=== PATIENT | female | born 1945 | race Caucasian/White ===

== ENCOUNTER 2016-03-24 09:23 | Observation (INO) | payer OTHER ==
[2016-03-24] VITALS (7 sets, daily range): BP systolic 113–206; BP diastolic 60–85; PULSE 50–114; RESP 16–18; TEMP 98.1–98.7; O2SAT 96–98
[~2016-03-24] VITALS: Ht 157.5 cm; Wt 87.0 kg
[~2016-03-24 09:23] MED LIST: ALBU8I INH; ASPI81TA82 PO; ATOR10TA PO; GLUCTAB PO; LISI-363 PO; MAGN400T PO; METO100T PO; NORV5TAB PO; PLAV75TA PO; PROT40TA PO; VENTAER INH; VITA20003 PO
--- NOTE | 2016-03-24 09:49 | PD ---
HPI Chief Complaint: Cardiac Complaint Time Seen by Provider: 09:38 Travel History International Travel<30 days: No Contact w/Intl Traveler<30days: No Traveled to known affect area: No History of Present Illness HPI 70-year-old female complains of chest pain and jaw pain and neck pain. Patient has history of CAD status post CABG and stent placement. Patient's on aspirin and Plavix daily. Patient started having left-sided jaw pain last night which lasted an hour and resolved completely. Patient started having neck discomfort , left sided jaw pain, and left chest discomfort this morning. Patient states that the symptoms started about an hour and a half prior coming to the emergency room. Patient states that the the pain is mild and constant. Patient denies any coughing congestion fever chills. Patient states that she had jaw pain in the past with previous MO. Patient has history hypertension, diabetes. Patient denies any history of dyslipidemia. Patient is a nonsmoker. Patient has family history of heart disease. On a scale of 1-10 the pain is a 1. Patient states that she has intermittent palpitations since last night also. PFSH Past Medical History Asthma: Yes Autoimmune Disease: Yes (SUNDAR) Heart Rhythm Problems: No Cardiac Catheterization: Yes Cardiovascular Problems: Yes (MO; STENTS; PACER) High Cholesterol: Yes Congestive Heart Failure: No Diabetes: Yes Diminished Hearing: No Endocrine: No Fibromyalgia: Yes GERD: Yes Genitourinary: No Musculoskeletal: Yes Neurologic: No Psychiatric: No Reproductive: No Respiratory: Yes Myocardial Infarction: Yes Thyroid Disease: Yes (?) : 3 Para: 2 Miscarriage: 1 Ectopic : Yes Past Surgical History Abdominal Surgery: Yes Cardiac Surgery: Yes (CAbg 1999) Cholecystectomy: Yes Coronary Artery Bypass Graft: Yes Coronary Stent: Yes Ear Surgery: No Endocrine Surgery: No Eye Surgery: Yes (BOTH LENSES IN BOTH EYES DONE) Genitourinary Surgery: No Gynecologic Surgery: Yes (ECTOPIC ) Oral Surgery: No Thoracic Surgery: No Other Surgery: Yes (OPEN HEART, 6 BYPASSES) Social History Alcohol Use: No Tobacco Use: No Substance Use: No Allergies-Medications (Allergen,Severity, Reaction): Coded Allergies: Nitroglycerin (Verified Allergy, Severe, Hives, 03/24/16) Vicodin (Verified Allergy, Intermediate, Itching, 03/24/16) Azithromycin (Verified Allergy, Unknown, 03/24/16) Penicillin (Verified Allergy, Unknown, 03/24/16) Sulfa (Verified Allergy, Unknown, 03/24/16) Tetracycline (Verified Allergy, Unknown, 03/24/16) Reported Meds & Prescriptions Reported Meds & Active Scripts Active Review of Systems General / Constitutional: No: Fever Eyes: No: Visual changes HENT: Positive: Neck Pain, No: Headaches Cardiovascular: Positive: Chest Pain or Discomfort, Palpitations Respiratory: No: Shortness of Breath Gastrointestinal: No: Abdominal Pain Genitourinary: No: Dysuria Musculoskeletal: No: Pain Skin: No Rash Neurologic: No: Weakness Psychiatric: No: Depression Endocrine: No: Polydipsia Hematologic/Lymphatic: No: Easy Bruising Physical Exam Narrative GENERAL: Well-nourished, well-developed patient. SKIN: Warm and dry. HEAD: Normocephalic. EYES: No scleral icterus. No injection or drainage. NECK: Supple, trachea midline. No JVD or lymphadenopathy. CARDIOVASCULAR: Regular rate and rhythm without murmurs, gallops, or rubs. RESPIRATORY: Breath sounds equal bilaterally. No accessory muscle use. GASTROINTESTINAL: Abdomen soft, non-tender, nondistended. MUSCULOSKELETAL: No cyanosis, or edema. BACK: Nontender without obvious deformity. No CVA tenderness. Neurologic exam normal. Data Data Last Documented VS Vital Signs Date Time Temp Pulse Resp B/P Pulse Ox O2 Delivery O2 Flow Rate FiO2 03/24/16 11:00 50 18 152/73 96 Room Air 03/24/16 09:30 98.1 Orders Electrocardiogram (03/24/16 ) Complete Blood Count With Diff (03/24/16 09:44) Comprehensive Metabolic Panel (03/24/16 09:44) Creatine Kinase (Cpk) (03/24/16 09:44) Troponin I (03/24/16 09:44) Prothrombin Time / Inr (Pt) (03/24/16 09:44) Act Partial Throm Time (Ptt) (03/24/16 09:44) Urinalysis - C+S If Indicated (03/24/16 09:44) Chest, Single Ap (03/24/16 09:44) Iv Access Insert/Monitor (03/24/16 09:44) Ecg Monitoring (03/24/16 09:44) Oximetry (03/24/16 09:44) Labs Laboratory Tests Test 03/24/16 03/24/16 09:50 12:00 White Blood Count 7.2 TH/MM3 Red Blood Count 4.67 MIL/MM3 Hemoglobin 13.2 GM/DL Hematocrit 39.6 % Mean Corpuscular Volume 84.9 FL Mean Corpuscular Hemoglobin 28.2 PG Mean Corpuscular Hemoglobin 33.2 % Concent Red Cell Distribution Width 13.5 % Platelet Count 241 TH/MM3 Mean Platelet Volume 7.9 FL Neutrophils (%) (Auto) 55.3 % Lymphocytes (%) (Auto) 31.0 % Monocytes (%) (Auto) 7.4 % Eosinophils (%) (Auto) 5.5 % Basophils (%) (Auto) 0.8 % Neutrophils # (Auto) 4.0 TH/MM3 Lymphocytes # (Auto) 2.2 TH/MM3 Monocytes # (Auto) 0.5 TH/MM3 Eosinophils # (Auto) 0.4 TH/MM3 Basophils # (Auto) 0.1 TH/MM3 CBC Comment DIFF FINAL Differential Comment Prothrombin Time 10.5 SEC Prothromb Time International 1.0 RATIO Ratio Activated Partial 24.0 SEC Thromboplast Time Sodium Level 136 MEQ/L Potassium Level 4.5 MEQ/L Chloride Level 100 MEQ/L Carbon Dioxide Level 27.5 MEQ/L Anion Gap 9 MEQ/L Blood Urea Nitrogen 17 MG/DL Creatinine 0.92 MG/DL Estimat Glomerular Filtration 61 ML/MIN Rate Random Glucose 202 MG/DL Calcium Level 9.2 MG/DL Total Bilirubin 0.7 MG/DL Aspartate Amino Transf 13 U/L (AST/SGOT) Alanine Aminotransferase 21 U/L (ALT/SGPT) Alkaline Phosphatase 102 U/L Total Creatine Kinase 84 U/L Troponin I 0.02 NG/ML Total Protein 7.6 GM/DL Albumin 3.7 GM/DL Urine Color YELLOW Urine Turbidity CLEAR Urine pH 5.0 Urine Specific [place] 1.011 Urine Protein NEG mg/dL Urine Glucose (UA) 70 mg/dL Urine Ketones NEG mg/dL Urine Occult Blood NEG Urine Nitrite NEG Urine Bilirubin NEG Urine Urobilinogen LESS THAN 2.0 MG/DL Urine Leukocyte Esterase SMALL Urine RBC LESS THAN 1 /hpf Urine WBC LESS THAN 1 /hpf Urine Squamous Epithelial 2 /hpf Cells Urine Bacteria RARE /hpf Microscopic Urinalysis Comment CULT NOT INDICATED MDM Medical Decision Making Medical Screen Exam Complete: Yes Emergency Medical Condition: Yes Interpretation(s) Last Impressions Chest X-Ray 1/14/17 0944 Signed Impressions: Service Date/Time: Thursday, March 24, 2016 09:59 - CONCLUSION: Normal examination. Six intact sternal wires and numerous vascular clips suggest CABG. Rusty Collins MD 12:37 PM. CBC within normal limit. CMP within normal limit. Cardiac enzymes are normal. UA is negative. Differential Diagnosis Differential diagnosis including angina, MO, PE, pneumothorax, arrhythmia. Narrative Course 70-year-old female with chest pain, neck pain, jaw pain, palpitation. History of CAD status post CABG and stent placement. Patient will be admitted to the chest pain center. Diagnosis Primary Impression: Chest pain Qualified Code: R07.9 - Chest pain, unspecified type Admitting Information Admitting Physician Requests: Matthew Whyte MD Mar 24, 2016 09:49
[2016-03-24 10:06] LABS: BASOPHIL # 0.1 TH/MM3 (0-0.2); BASOPHIL % 0.8 % (0.0-2.0); EOSINOPHIL # 0.4 TH/MM3 (0-0.4); EOSINOPHIL % 5.5 % (0.0-4.0); HEMATOCRIT 39.6 % (35.0-46.0); HEMO FLAGS DIFF FINAL; LYMPHOCYTE # 2.2 TH/MM3 (1.0-4.8); MEAN CELL VOLUME 84.9 FL (80.0-100.0); MEAN CORPUSCULAR HEMOGLOBIN 28.2 PG (27.0-34.0); MEAN CORPUSCULAR HGB CONC 33.2 % (32.0-36.0); MONO % 7.4 % (0.0-8.0); NEUT % 55.3 % (16.0-70.0); PLATELET COUNT 241 TH/MM3 (150-450); RED BLOOD COUNT 4.67 MIL/MM3 (4.00-5.30); RED CELL DISTRIBUTION WIDTH 13.5 % (11.6-17.2); WHITE BLOOD COUNT 7.2 TH/MM3 (4.0-11.0)
--- NOTE | 2016-03-24 10:09 | RADRPT ---
EXAM DATE/TIME: 03/24/2016 09:59 [facility] COMPARISON: CHEST SINGLE AP, March 21, 2015, 13:08. INDICATIONS : Chest discomfort, mild shortness of breath starting today MEDICAL HISTORY : Cardiovascular disease. Asthma SURGICAL HISTORY : CABG. Cardiac stent ENCOUNTER: Initial ACUITY: 1 day PAIN SCORE: 0/10 LOCATION: Bilateral chest FINDINGS: A single view of the chest demonstrates the lungs to be symmetrically aerated without evidence of mas s, infiltrate or effusion. The cardiomediastinal contours are unremarkable. Osseous structures are intact. CONCLUSION: Normal examination. Six intact sternal wires and numerous vascular clips suggest CABG. Rusty Collins MD on March 24, 2016 at 10:07 Board Certified Radiologist. This report was verified electronically.
[2016-03-24 10:17] LABS: PROTHROMBIN TIME - PATIENT 10.5 SEC (9.8-11.6)
[2016-03-24 10:22] LABS: ANION GAP 9 MEQ/L (5-15); AST (GOT) 13 U/L (15-37); BICARBONATE 27.5 MEQ/L (21.0-32.0); BLOOD UREA NITROGEN 17 MG/DL (7-18); CHLORIDE 100 MEQ/L (98-107); GLOMERULAR FILTRATION RATE 61 ML/MIN (>89); POTASSIUM 4.5 MEQ/L (3.5-5.1); SODIUM (NA) 136 MEQ/L (136-145)
[2016-03-24 10:27] LABS: ALKALINE PHOSPHATASE 102 U/L (45-117); ALT (GPT) 21 U/L (10-53); TOTAL BILIRUBIN ADULT 0.7 MG/DL (0.2-1.0)
[2016-03-24 10:39] LABS: CREATINE KINASE 84 U/L (26-192)
[2016-03-24 12:12] LABS: BACTERIA, URINE RARE /hpf; BLOOD, URINE NEG (NEG); COMMENT (UR) CULT NOT INDICATED; CULTURE IF INDICATED CULT NOT INDICATED; GLUCOSE,URINE 70 mg/dL (NEG); KETONE, URINE NEG (NEG); NITRITE,URINE NEG (NEG); SQUAMOUS EPITHELIAL CELL URINE 2 /hpf (0-5); URINE COLOR YELLOW (YELLW/STRAW)
[2016-03-24] MEDS ORDERED: NITROGLYCERIN 0.4 MG SL 25 TABS/BTL SL PRN (12:45)
[2016-03-24] MEDS ORDERED: ACETAMINOPHEN 500 MG CPLT PO PRN (12:45)
[2016-03-24] MEDS ORDERED: SODIUM CHLORIDE 0.9% FLUSH 5 ML FLUSH IVF PRN (12:45)
--- NOTE | 2016-03-24 14:27 | EKG ---
Date Performed: 03/24/2016 Time Performed: 09:35:15 PTAGE: 70 years EKG: SINUS BRADYCARDIA LOW QRS VOLTAGE IN PRECORDIAL LEADS INCOMPLETE RIGHT BUNDLE BRANCH BLOCK POSSIBLE ANTERIOR MYOCARDIAL INFARCTION INFERIOR MYOCARDIAL INFARCTION ABNORMAL ECG Compared to prior tracing no significant change PREVIOUS TRACING : 03/21/2015 18.37 DOCTOR: Dennis Hare Interpretating Date/Time 03/24/2016 14:25:50
[2016-03-24] MEDS ORDERED: RESP: ALBUTEROL 2.5 MG/3 ML NEB (PRN) NEB (17:15)
[2016-03-24] MEDS ORDERED: ONDANSETRON HCL 4 MG/2 ML VIAL IV PRN (17:15)
[2016-03-24] MEDS ORDERED: METO100T PO (18:42)
[2016-03-24] MEDS ORDERED: AMLO5TAB2 PO (18:42)
[2016-03-24] MEDS ORDERED: MAGN400T PO (18:42)
[2016-03-24] MEDS ORDERED: PANT40TA3 PO (18:42)
[2016-03-24] MEDS ORDERED: PLAV75TA29 PO (18:42)
[2016-03-24] MEDS ORDERED: LISI-515 PO (18:42)
[2016-03-24] MEDS ORDERED: VITA200013 PO (18:42)
[2016-03-24] MEDS ORDERED: ASPI81TA81 PO (18:42)
[2016-03-24] MEDS ORDERED: ALBUAER3 INH (18:42)
[2016-03-24] MEDS ORDERED: INSU100V SQ (18:42)
[2016-03-24] MEDS ORDERED: ATOR10TA15 PO (18:42)
[2016-03-24] MEDS ORDERED: METF500T4 PO (18:42)
[2016-03-24] MEDS ORDERED: GLUCAGON 1 MG/ML VIAL OTHER PRN (19:00)
[2016-03-24] MEDS ORDERED: DEXTROSE 50% IN WATER 50 ML VIAL(D50) IV PUSH PRN (19:00)
[2016-03-24] MEDS ORDERED: NON-FORMULARY DRUG (Metformin ER 500 MG) PO SCH (19:45)
[2016-03-24] MEDS ORDERED: ATORVASTATIN 10 MG TAB PO SCH (21:00)
[2016-03-24] MEDS ORDERED: amLODIPine BESYLATE 5 MG TAB PO SCH (21:00)
--- NOTE | 2016-03-24 21:14 | MH ---
cc: HEIDI [place] MD DATE OF ADMISSION 03/24/2016 DATE OF 49 CHIEF COMPLAINT Left jaw pain HISTORY OF PRESENT ILLNESS This is a 70-year old patient with known coronary artery disease and a six vessel open heart surgery in 1999 who presents to the emergency room with an onset of left jaw pain last night approximately 9:00 p.m. Jaw pain lasted about 30 minutes. She subsequently went to sleep, did not have the jaw pain throughout the evening and then upon awaking around 8:30 in the morning, she again had left jaw pain that lasted 30 minutes. Severity was a 3/10. There was no radiation of this pain. She did have a little nausea and reports two loose stools. No known precipitating factors or relieving factors. She did not have any chest pain but has had some chest tightness and also states her heart felt as though it was "flipping around". The patient was concerned because when she had her heart attack in 1999 the only chest discomfort she had at that time was left jaw pain. PAST MEDICAL HISTORY 1. Coronary artery disease. One cardiac stent. 2. Lupus 3. Hyperlipidemia 4. Type 2 diabetes, 5. Osteoarthritis, 6. Fibromyalgia, 7. Asthma, 8. Gastroesophageal reflux disease, 9. Chronic pain PAST SURGICAL HISTORY 1. Coronary artery bypass graft 2. Appendectomy, 3. Cholecystectomy, 4. Bilateral cataract surgery FAMILY HISTORY Noncontributory for any early onset cardiovascular disease. SOCIAL HISTORY She quit smoking cigarettes 40 years ago. Denies any alcohol or illegal drug use. Does have hypertension, hyperlipidemia and diabetes. States she is quite sedentary and has gained approximately 40 pounds since the of her dig and she has been not exercising or eating as she used to. PAST CARDIAC TESTING She had a cardiac catheterization 10/03/[address] Pierson. The conclusions of that test was a successful stenting of her saphenous vein grafting to the right coronary artery with a drug-eluting stent. She had low LV function, three-vessel cardiac coronary artery disease and for patent bypass grafts with severe compromise to the vein graft to the RCA and severe stenosis in a very small distal LAD distal to the vein graft to the LAD. The patient was admitted to the chest pain center 03/22/2015. At that time, she had a nuclear ETT which showed an old inferior MO with aaron-infarct ischemia in same vascular territory. Apical thinning, septal hypokinesis with a preserved ejection fraction of 66%. She has not seen a denial resolution specialist in over two years due to insurance problems and inability to pay her copay. MEDICATIONS Current include 1. Metformin 500 mg b.i.d. 2. Lisinopril 20 mg daily 3. Pro-Air two puffs q. 6 hours p.r.n. as needed 4. Metoprolol tartrate 150 mg p.o. b.i.d. 5. Amlodipine 5 mg q.h.s. 6. Atorvastatin 10 mg q.h.s. 7. Humalog mix 75/25 12 units b.i.d. 8. Baby aspirin every day. 9. Plavix 75 mg daily. 10. Protonix 40 mg daily. 11. Vitamin D 2000 units p.o. daily. REVIEW OF SYSTEMS Reports chronic fatigue. This has become worse since the loss of her dog. However, there is no fevers, chills, recent illness or recent travel. HEENT: No headaches or visual changes, nasal congestion or dysphagia. CARDIOVASCULAR: There has been no chest pain, pressure, palpitations, intermittent leg pain or dizziness, otherwise as stated above the "flipping of her chest" throughout the day. RESPIRATORY: No shortness of breath, cough, wheeze, recent upper respiratory infection or cough. She does state she has chest tightness with activity, however, this is longstanding and is unchanged. : No dysuria. ABDOMEN: No bowel changes, diarrhea, constipation, blood in stool or dark stool, pain, distension. did have two loose stools this morning during episode of left jaw pain. EXTREMITIES: Chronic lower left extremity edema. MUSCULOSKELETAL: She has chronic pain throughout her whole body related to fibromyalgia. NEUROLOGIC: No difficulty with balance, motor or sensory deficits, loss of consciousness. PSYCHIATRIC: No anxiety. Reports some depression since the of her dog. SKIN: There is no concerning lesions or rashes PHYSICAL EXAMINATION VITAL SIGNS: Temperature 98.1, pulse 63, respiratory 18 and blood pressure 113/60 and 96% on room air. GENERAL: She is alert, well-nourished, well-developed, obese, no acute distress pleasant female HEAD: Normocephalic, atraumatic. EYES: Pupils are equal and round. Sclerae are clear. NECK: Supple. Trachea is midline. CARDIOVASCULAR: She has a bradycardic rate that is regular without murmur, rub or gallop. No JVD. S1-S2. No S3. No S4. No carotid bruits appreciated. RESPIRATORY: Clear lungs throughout bilateral with no crackles, wheeze or rhonchi. She is nonlabored. ABDOMEN: Obese, soft, nontender, nondistended. No masses. Positive bowel tones. BACK: No CVA tenderness. EXTREMITIES: Pulses +2 x4 with +1 pitting edema of her lower extremities bilateral. MUSCULOSKELETAL: Normal tone x4. She is tender in the epigastric area upon palpation. No obvious deformities. NEUROLOGIC: Cranial nerves II-XII grossly intact. Motor strength 5/5. Gait is within normal limits. PSYCHIATRIC: Alert and oriented x3, has a pleasant affect, appropriate to mood, insight and judgment. SKIN: Normal turgor, normal texture with a brisk cap refill and her skin is warm and dry. LABORATORY CBC is unremarkable. Chemistry has a random glucose of 202 otherwise unremarkable. Three sets of cardiac enzymes are all negative. Coagulation is unremarkable. A UA is also unremarkable. IMAGING STUDIES Chest x-ray read by the radiologist has a conclusion of a normal exam. Fixed intact sternal wires and numerous vascular clips suggest coronary artery bypass graft. CARDIOLOGY STUDIES EKGs show sinus normal sinus bradycardic rhythm with an incomplete right bundle branch block with a possible inferior myocardial infarction. ASSESSMENT/PLAN 1. Jaw pain. The patient has been admitted to the chest pain center for further evaluation regarding her cardiac history and complaint of left jaw pain. She has undergone three sets of EKGs and cardiac enzymes. Also was seen evaluated on by Dr. Heidi Ny. The patient will undergo a chemical stress test tomorrow. This has been discussed with the patient and she is agreeable to this plan of care. Actually if this test comes back unremarkable, she will be later discharged and encouraged to follow up with her primary care provider, Dr. Angel Greber, and to reestablish with the [facility]. All of her other medications have been reordered as appropriate while in the chest pain center. 2. Diabetes. Sliding scale insulin has been ordered, medium coverage, also hemoglobin A1c has been ordered. 3. Possible hypothyroidism. We have ordered a TSH. Also a hemoglobin A1c. Dictated by MATEO Escobar MD NANCY Leonard/ 8:01 PM /8:52 AM
[2016-03-24] MEDS: SODIUM CHLORIDE 0.9% FLUSH 5 ML FLUSH IVF SCH (21:49)
[2016-03-24] MEDS: METOPROLOL TARTRATE 100 MG TAB PO SCH (21:50)
[2016-03-24] MEDS: INSULIN ASPART SUPPLEMENTAL SCALE SQ SCH (22:00)
[2016-03-25] VITALS (7 sets, daily range): BP systolic 136–138; BP diastolic 64–78; PULSE 51–78; RESP 18; TEMP 96.2–98.7; O2SAT 95–97
[2016-03-25] MEDS: INSULIN ASPART SUPPLEMENTAL SCALE SQ SCH ×3 (06:45→12:25)
[2016-03-25] MEDS: SODIUM CHLORIDE 0.9% FLUSH 5 ML FLUSH IVF SCH (08:13)
[2016-03-25] MEDS: METOPROLOL TARTRATE 100 MG TAB PO SCH (08:15)
[2016-03-25] MEDS ORDERED: PANTOPRAZOLE SOD 40 MG DELAYED RELEASE TAB PO SCH (09:00)
[2016-03-25] MEDS ORDERED: LISINOPRIL 20 MG TAB PO SCH (09:00)
[2016-03-25] MEDS ORDERED: CLOPIDOGREL 75 MG TAB PO SCH (09:00)
[2016-03-25] MEDS ORDERED: metFORMIN HCL 500 MG TAB PO SCH (09:00)
[2016-03-25] MEDS ORDERED: CHOLECALCIFEROL (VIT D3) 1000 UNIT TAB PO SCH (09:00)
[2016-03-25] MEDS ORDERED: REGADENOSON INJ 0.4 MG/5 ML SYR ONE (11:17)
[2016-03-25 11:34] LABS: HEMOGLOBIN A1a 1.3 %; HEMOGLOBIN A1b 1.2 %; HEMOGLOBIN Ao 80.3 %; HEMOGLOBIN F 1.5 %; HEMOGLOBIN LA1C 2.1 %; HEMOGLOBIN P3 4.2 %
--- NOTE | 2016-03-25 13:03 | RADRPT ---
EXAM DATE/TIME: 03/25/2016 11:03 [facility] COMPARISON: No previous studies available for comparison. INDICATIONS : Left sided chest pain radiating to left side of jaw for 1 day. Myocardial infarction, cardiac cath an d stent. Angina. Coronary artery bypass graft. DOSE: 26.0 mCi Tc99m Myoview at stress. 8.1 mCi Tc99m Myoview at rest. 0.4 mg Lexiscan STRESS SYMPTOMS: Nausea, shortness of breath and chest pain. EJECTION FRACTION: 47% MEDICAL HISTORY : Hypertension. Hypercholesterolemia. SURGICAL HISTORY : Cholecystectomy. Coronary artery stent. ENCOUNTER: Initial ACUITY: 1 day PAIN SCALE: 1/10 LOCATION: Left chest TECHNIQUE: The patient underwent pharmacologic stress with infusion of prescribed dose. Continuous ECG tracing was monitored during stress. Gated SPECT imaging was performed after stress and conventional SPECT i maging was performed at rest. The examination was performed on a SPECT/CT scanner, both attenuation and non-corrected datasets were reviewed. FINDINGS: DISTRIBUTION: The maximum perfused segment at stress is in the anteroseptal wall. PERFUSION STUDY: The pattern of perfusion at stress is within normal limits except for continued decreased perfusion t o the RCA distribution. On a few images there is question of 2 color change of the posterior wall but I don't see any definite areas of ischemia. GATED STUDY: There is decreased wall motion of the septum not unusual status post CABG. CONCLUSION: Status post CABG with some hypokinesis of the septum. Ejection fraction is only 47%. Some decreased p erfusion both at stress and rest of the posterior wall. No definite ischemia seen RISK CATEGORY: Low (<1% Annual Mortality Rate) Rusty Collins MD on March 25, 2016 at 12:59 Board Certified Radiologist. This report was verified electronically.
--- NOTE | 2016-03-25 13:20 | TR ---
Date Performed: 03/25/2016 Time Performed: 11:33:24 DOCTOR: Seven Ny DRUG LIST: CLINICAL HISTORY: CHEST PAIN REASON FOR TEST: REASON FOR ENDING: OBSERVATION: CONCLUSION: Lexiscan stress test was performed under standard four minute protocol. Radionuclide was injected one minute prior to ending the test. The patient was asymptomatic, systolic blood press ure was moderately elevated. No electrocardiographic abnormalities were present to suggest ischemia. Recovery was quick and uneventful, systolic blood pressure remained moderately elevated. Nuclear imag ing and interpretation are pending. COMMENTS:
[2016-03-25] MEDS ORDERED: LEVO25TA4 PO (13:35)
[2016-03-25] MEDS ORDERED: INSU100V SQ (13:35)
[2016-03-25] MEDS ORDERED: AMLO10TA2 PO (13:35)
--- NOTE | 2016-03-25 13:36 | HHI.DCPOC ---
Discharge Care Plan Diagnosis: (1) Atypical chest pain (2) Hx of coronary artery disease (3) Hypertension (4) Diabetes mellitus (5) Hypothyroidism Goals to Promote Your Health * To prevent worsening of your condition and complications * To maintain your health at the optimal level Directions to Meet Your Goals Take your medications as prescribed Follow your dietary instruction Follow activity as directed Keep your appointments as scheduled Take your immunizations and boosters as scheduled If your symptoms worsen call your PCP, if no PCP go to Urgent Care Center or Emergency Room Smoking is Dangerous to Your Health. Avoid second hand smoke Call the 24-hour hour crisis hotline for domestic abuse at Mariela Chan Mar 25, 2016 13:36
--- NOTE | 2016-03-25 13:52 | EKG ---
Date Performed: 03/24/2016 Time Performed: 12:53:18 PTAGE: 70 years EKG: SINUS BRADYCARDIA LOW QRS VOLTAGE IN PRECORDIAL LEADS INCOMPLETE RIGHT BUNDLE BRANCH BLOCK INFERIOR MYOCARDIAL INFARCTION Possible anterior myocardial infarction, age undetermined Largely unch anged since prior tracing ABNORMAL ECG PREVIOUS TRACING : 03/24/2016 09.35 DOCTOR: Dennis Hare Interpretating Date/Time 03/25/2016 13:52:12
--- NOTE | 2016-03-25 13:54 | EKG ---
Date Performed: 03/24/2016 Time Performed: 15:59:21 PTAGE: 70 years EKG: SINUS BRADYCARDIA INCOMPLETE RIGHT BUNDLE BRANCH BLOCK PROBABLE INFERIOR MYOCARDIAL INFARCT ION Possible anterior infarct, age undetermined unchanged since prior tracing ABNORMAL ECG NO PREVIOUS TRACING DOCTOR: Dennis Hare Interpretating Date/Time 03/25/2016 13:53:06
== END 2016-03-25 15:37 | disposition home or self-care (01) ==
LOC: NEPA 09:23 → NEDA 13:29 → NEPFCDU 15:21
PROVIDERS: ADMIT Family Medicine; ATTEND Family Medicine
DX: R07.89 Other chest pain (principal); I25.10 Atherosclerotic heart disease of native coronary artery without angina pectoris; R68.84 Jaw pain; M54.2 Cervicalgia; I25.2 Old myocardial infarction; I10 Essential (primary) hypertension; E11.9 Type 2 diabetes mellitus without complications; R00.2 Palpitations; J45.909 Unspecified asthma, uncomplicated; M79.7 Fibromyalgia; E78.00 Pure hypercholesterolemia, unspecified; K21.9 Gastro-esophageal reflux disease without esophagitis; M32.9 Systemic lupus erythematosus, unspecified; G89.29 Other chronic pain; Z82.49 Family history of ischemic heart disease and other diseases of the circulatory system; Z95.5 Presence of coronary angioplasty implant and graft; Z95.1 Presence of aortocoronary bypass graft
CPT/HCPCS: 71010; 78452; 80053; 81001; 82550; 82948; 83036; 84443; 84484; 85025; 85610; 85730; 93005; 93017; 99285; A9502; G0378; J1815; J2785

== ENCOUNTER 2016-07-09 20:48 | Emergency (ER) | payer OTHER ==
[~2016-07-09] VITALS: Ht 157.5 cm; Wt 90.0 kg
[~2016-07-09 20:48] MED LIST changes: -ALBU8I INH; +ALBUAER3 INH; +AMLO10TA2 PO; +ASPI81TA81 PO; -ASPI81TA82 PO; -ATOR10TA PO; +ATOR10TA15 PO; -GLUCTAB PO; +INSU100V SQ; +LEVO25TA4 PO; -LISI-363 PO; +LISI-515 PO; -MAGN400T PO; +METF500T4 PO; -NORV5TAB PO; +PANT40TA3 PO; -PLAV75TA PO; +PLAV75TA29 PO; -PROT40TA PO; -VENTAER INH; +VITA200013 PO; -VITA20003 PO
[2016-07-09 20:50] VITALS: BP 203/103; PULSE 74; RESP 16; TEMP 99; O2SAT 98
--- NOTE | 2016-07-09 21:43 | PD ---
Physical Exam Time Seen by Provider: 21:40 Narrative 70 y/o female with dizziness, hot flashes, generalized weakness for a few hours. vss Seen at triage desk. Awaiting bed placement. Data Data Last Documented VS Vital Signs Date Time Temp Pulse Resp B/P Pulse Ox O2 Delivery O2 Flow Rate FiO2 07/09/16 20:50 99.0 74 16 203/103 98 Room Air [facility] Medical Record Reviewed: Yes Supervised Visit with MITA: French Villafana July 09, 2016 21:43
== END 2016-07-09 23:00 | disposition left against medical advice (07) ==
LOC: NED 20:48
DX: R42 Dizziness and giddiness (principal); R53.1 Weakness
CPT/HCPCS: 99281

== ENCOUNTER 2017-05-06 23:09 | Emergency (ER) | payer OTHER, MEDICAID ==
[~2017-05-06] VITALS: Ht 165.1 cm; Wt 95.0 kg
[2017-05-06 23:40] VITALS: BP 166/79; PULSE 58; RESP 16; TEMP 98.7; O2SAT 99
--- NOTE | 2017-05-07 01:05 | PD ---
HPI Chief Complaint: Flank/Kidney Pain Time Seen by Provider: 01:01 Travel History International Travel<30 days: No Contact w/Intl Traveler<30days: No Traveled to known affect area: No History of Present Illness HPI 71-year-old female presents to the emergency department for complaint of 2 days of left flank pain radiating into the left abdomen with associated nausea without vomiting. No chest pain no shortness of breath no sweats. Patient states she has history of CAD CABG cardiac catheterization with stent placement OR 2 diabetes hypertension dyslipidemia hypothyroidism and reactive airways disease. Patient rates her current discomfort to the left flank for over 10 intensity at worst 8/10 in intensity. Patient is on blood thinning agent Plavix and aspirin. Patient denies fever or chills. Patient is unable to identify exacerbating or alleviating factors. No prior history of kidney stones and no known aortic disease. No lower extremity numbness tingling or weakness no saddle anesthesia and no bladder or bowel dysfunction. No dysuria frequency urgency or hematuria. PFSH Past Medical History Narrative Medical Lupus asthma diabetes CAD OR CABG cardiac catheterization stent placement hypertension dyslipidemia; no tobacco use; nursing notes reviewed Asthma: Yes Autoimmune Disease: Yes (LUPUS) Heart Rhythm Problems: Yes Cardiac Catheterization: Yes Cardiovascular Problems: Yes High Cholesterol: No Congestive Heart Failure: No Diabetes: Yes Patient Takes Glucophage: No Diminished Hearing: No Endocrine: No Fibromyalgia: Yes Gastrointestinal Disorders: No GERD: Yes Genitourinary: No Heparin Induced Thrombocytopen: No Hypertension: Yes Musculoskeletal: Yes Neurologic: No Psychiatric: No Reproductive: No Respiratory: Yes Immunizations Current: Yes Myocardial Infarction: Yes Thyroid Disease: Yes (?) Tetanus Vaccination: Unknown Influenza Vaccination: Yes : 3 Para: 2 Miscarriage: 1 Ectopic : Yes Past Surgical History Abdominal Surgery: Yes Cardiac Surgery: Yes (CAbg 1999) Cholecystectomy: Yes Coronary Artery Bypass Graft: Yes Coronary Stent: Yes Ear Surgery: No Endocrine Surgery: No Eye Surgery: Yes (BOTH LENSES IN BOTH EYES DONE) Genitourinary Surgery: No Gynecologic Surgery: Yes (ECTOPIC ) Neurologic Surgery: No Oral Surgery: No Thoracic Surgery: No Other Surgery: Yes (OPEN HEART, 6 BYPASSES) Family History Family Myocardial Infarction: Yes (MOM, GF) Social History Alcohol Use: No Tobacco Use: No Substance Use: No Allergies-Medications (Allergen,Severity, Reaction): Coded Allergies: nitroglycerin (Unverified Allergy, Severe, Hives, 2/26/18) acetaminophen (Unverified Allergy, Intermediate, Itching, 05/06/17) hydrocodone (Unverified Allergy, Intermediate, Itching, 05/06/17) Sulfa (Sulfonamide Antibiotics) (Unverified Allergy, Unknown, 05/06/17) azithromycin (Unverified Allergy, Unknown, 05/06/17) doxycycline (Unverified Allergy, Unknown, 05/06/17) minocycline (Unverified Allergy, Unknown, 05/06/17) penicillin G (Unverified Allergy, Unknown, 05/06/17) tigecycline (Unverified Allergy, Unknown, 05/06/17) Reported Meds & Prescriptions Reported Meds & Active Scripts Active Humalog Mix 75-25 Inj (Insulin Lispro Protam/Lispro Human) 1,000 Unit/10 Ml Susp 20 Units SQ BIDAC 30 Days Levothyroxine (Levothyroxine Sodium) 25 Mcg Tab 25 Mcg PO DAILY Amlodipine (Amlodipine Besylate) 10 Mg Tab 10 Mg PO DAILY Reported Pantoprazole (Pantoprazole Sodium) 40 Mg Tab 40 Mg PO DAILY Metoprolol Tartrate 100 Mg Tab 150 Mg PO BID Metformin ER (Metformin HCl) 500 Mg Karen 500 Mg PO BIDPC With evening meal Lisinopril 20 Mg Tab 20 Mg PO DAILY Plavix (Clopidogrel Bisulfate) 75 Mg Tab 75 Mg PO DAILY Vitamin D (Cholecalciferol) 2,000 Unit Cap 2,000 Units PO DAILY Atorvastatin (Atorvastatin Calcium) 10 Mg Tab 10 Mg PO HS Aspir-81 (Aspirin) 81 Mg Tabdr 81 Mg PO DAILY Proair Hfa 8.5 GM Inh (Albuterol Sulfate) 90 Mcg/Act Aer 2 Puff INH Q6H PRN 108 mcg/actuation Review of Systems Except as stated in HPI: all other systems reviewed are Neg Physical Exam Narrative GENERAL: Well-developed well nourished female no acute distress no respiratory distress SKIN: Warm and dry. HEAD: Normocephalic. EYES: No scleral icterus. No injection or drainage. NECK: Supple, trachea midline. No JVD or lymphadenopathy. CARDIOVASCULAR: Regular rate and rhythm without murmurs, gallops, or rubs. RESPIRATORY: Breath sounds equal bilaterally. No accessory muscle use. GASTROINTESTINAL: Abdomen soft, non-tender, nondistended. No palpable pulsatile mass. MUSCULOSKELETAL: No cyanosis, or edema. Radial and dorsalis pedis pulses 2+ to palpation bilaterally. BACK: Nontender without obvious deformity. Left-sided CVA tenderness. Data Data Last Documented VS Vital Signs Date Time Temp Pulse Resp B/P (MAP) Pulse Ox O2 Delivery O2 Flow Rate FiO2 05/06/17 23:40 98.7 58 16 166/79 (108) 99 Room Air Orders Orders Complete Blood Count With Diff (05/07/17 01:01) Basic Metabolic Panel (Bmp) (05/07/17 01:01) Urinalysis - C+S If Indicated (05/07/17 01:01) Ct Abd/Pel W/O Iv Contrast (05/07/17 01:01) Ecg Monitoring (05/07/17 01:01) Iv Access Insert/Monitor (05/07/17 01:01) Ondansetron Inj (Zofran Inj) (05/07/17 01:15) Sodium Chloride 0.9% Flush (Ns Flush) (05/07/17 01:15) Ketorolac Inj (Toradol Inj) (05/07/17 01:15) Urine Culture (05/07/17 03:55) Ed Discharge Order (05/07/17 04:32) Nitrofurantoin Monohyd Macrocr (Macrobid (05/07/17 04:45) Labs Laboratory Tests Test 05/07/17 01:04 05/07/17 03:55 White Blood Count 8.5 TH/MM3 Red Blood Count 4.66 MIL/MM3 Hemoglobin 11.9 GM/DL Hematocrit 36.5 % Mean Corpuscular Volume 78.3 FL Mean Corpuscular Hemoglobin 25.6 PG Mean Corpuscular Hemoglobin Concent 32.7 % Red Cell Distribution Width 16.4 % Platelet Count 315 TH/MM3 Mean Platelet Volume 7.6 FL Neutrophils (%) (Auto) 53.0 % Lymphocytes (%) (Auto) 33.2 % Monocytes (%) (Auto) 9.9 % Eosinophils (%) (Auto) 3.3 % Basophils (%) (Auto) 0.6 % Neutrophils # (Auto) 4.5 TH/MM3 Lymphocytes # (Auto) 2.8 TH/MM3 Monocytes # (Auto) 0.8 TH/MM3 Eosinophils # (Auto) 0.3 TH/MM3 Basophils # (Auto) 0.1 TH/MM3 CBC Comment DIFF FINAL Differential Comment Blood Urea Nitrogen 19 MG/DL Creatinine 0.81 MG/DL Random Glucose 104 MG/DL Calcium Level 9.2 MG/DL Sodium Level 138 MEQ/L Potassium Level 3.8 MEQ/L Chloride Level 104 MEQ/L Carbon Dioxide Level 29.0 MEQ/L Anion Gap 5 MEQ/L Estimat Glomerular Filtration Rate 70 ML/MIN Urine Color YELLOW Urine Turbidity CLEAR Urine pH 5.0 Urine Specific [place] 1.010 Urine Protein TRACE mg/dL Urine Glucose (UA) NEG mg/dL Urine Ketones NEG mg/dL Urine Occult Blood NEG Urine Nitrite NEG Urine Bilirubin NEG Urine Urobilinogen LESS THAN 2.0 MG/DL Urine Leukocyte Esterase LARGE Urine RBC 3 /hpf Urine WBC 11 /hpf Urine Squamous Epithelial Cells 1 /hpf Urine Transitional Epithelial Cells <1 /hpf Urine Bacteria RARE /hpf Urine Hyaline Casts 1 /lpf Urine Mucus FEW /lpf Microscopic Urinalysis Comment CULTURE INDICATED MDM Medical Decision Making Medical Screen Exam Complete: Yes Emergency Medical Condition: Yes Medical Record Reviewed: Yes Interpretation(s) CBC & BMP Diagram 05/07/17 01:04 Calcium Level 9.2 Vital Signs Date Time Temp Pulse Resp B/P (MAP) Pulse Ox O2 Delivery O2 Flow Rate FiO2 05/06/17 23:40 98.7 58 16 166/79 (108) [address]: CONCLUSION: 1. No radiopaque renal calculi or obstructive uropathy. 2. Colonic diverticulosis without evidence for diverticulitis. 3. Degenerative spondylosis of the lower lumbar spine with mild grade 1 anterolisthesis of L5 on S1 likely due to facet arthrosis. Lee Burgess MD on May 07, 2017 at 2:24 Board Certified Radiologist. This report was verified electronically. UA: Positive bacteria positive white blood cells culture indicated Differential Diagnosis Flank pain, renal colic, pyelonephritis, obstructive uropathy, abdominal aortic aneurysm, dissection, atypical ACS/OR Narrative Course IV access obtained specimens collected and sent for resulting CT abdomen pelvis does not show evidence of aneurysm or kidney stones obstruction or appendicitis; urinalysis is abnormal patient ordered first dose of antibiotic Macrobid in the emergency department and a prescription for Macrobid as an outpatient. Patient declined antibiotic as she wants to wait on culture results due to her multiple medication allergies Patient is stable for outpatient management Diagnosis Primary Impression: Left flank pain Additional Impression: UTI (urinary tract infection) Referrals: Primary Care Physician call for appointment Patient Instructions: General Instructions Additional Instructions: Continue current medications as chronically prescribed Increase fluid hydration Complete course of antibiotic as prescribed Take as tolerated ibuprofen/Advil/Motrin every 6-8 hours as needed for fever 100.4F or greater and or for pain associated with inflammation Med/Other Pt SpecificInfo: Prescription(s) given Scripts Nitrofurantoin Monohydrate Macrocrystals (Macrobid) 100 Mg Cap 100 MG PO BID for Infection for 10 Days, #20 CAP 0 Refills Prov: Juanita Wall MD 05/07/17 Disposition: 01 DISCHARGE HOME Condition: Stable Juanita Wall MD May 07, 2017 01:05
[2017-05-07] MEDS ORDERED: KETOROLAC TROMETHAMINE 30 MG/ML (IVP) VIAL IV PUSH ONE (01:15)
[2017-05-07] MEDS ORDERED: ONDANSETRON HCL 4 MG/2 ML VIAL IV PUSH ONE (01:15)
[2017-05-07] MEDS ORDERED: SODIUM CHLORIDE 0.9% FLUSH 10 ML FLUSH IVF PRN (01:15)
[2017-05-07 01:24] LABS: AUTOMATED NEUTROPHIL # 4.5 TH/MM3 (1.8-7.7); BASOPHIL # 0.1 TH/MM3 (0-0.2); BASOPHIL % 0.6 % (0.0-2.0); EOSINOPHIL # 0.3 TH/MM3 (0-0.4); EOSINOPHIL % 3.3 % (0.0-4.0); HEMATOCRIT 36.5 % (35.0-46.0); HEMOGLOBIN 11.9 GM/DL (11.6-15.3); LYMPH % 33.2 % (9.0-44.0); LYMPHOCYTE # 2.8 TH/MM3 (1.0-4.8); MEAN CELL VOLUME 78.3 FL (80.0-100.0); MEAN CORPUSCULAR HEMOGLOBIN 25.6 PG (27.0-34.0); MEAN CORPUSCULAR HGB CONC 32.7 % (32.0-36.0); MEAN PLATELET VOLUME 7.6 FL (7.0-11.0); MONO % 9.9 % (0.0-8.0); MONOCYTE # 0.8 TH/MM3 (0-0.9); PLATELET COUNT 315 TH/MM3 (150-450); RED BLOOD COUNT 4.66 MIL/MM3 (4.00-5.30); RED CELL DISTRIBUTION WIDTH 16.4 % (11.6-17.2); WHITE BLOOD COUNT 8.5 TH/MM3 (4.0-11.0)
[2017-05-07 01:50] LABS: CALCIUM 9.2 MG/DL (8.5-10.1); CREATININE 0.81 MG/DL (0.50-1.00)
--- NOTE | 2017-05-07 02:29 | RADRPT ---
EXAM DATE/TIME: 05/07/2017 02:13 [facility] COMPARISON: No previous studies available for comparison. INDICATIONS : Left flank pain. ORAL CONTRAST: No oral contrast ingested. RADIATION DOSE: 16.86 CTDIvol (mGy) MEDICAL HISTORY : Myocardial infarction. Lupus. Gastroesophageal reflux disease.Diabetes. SURGICAL HISTORY : None. ENCOUNTER: Initial ACUITY: 2 days PAIN SCALE: 9/10 LOCATION: Left flank TECHNIQUE: Volumetric scanning of the abdomen and pelvis was performed. Using automated exposure control and ad justment of the mA and/or kV according to patient size, radiation dose was kept as low as reasonably achievable to obtain optimal diagnostic quality images. DICOM format image data is available electro nically for review and comparison. FINDINGS: LOWER LUNGS: The visualized lower lungs are clear. LIVER: Homogeneous density without lesion. There is no dilation of the biliary tree. SPLEEN: Normal size without lesion. PANCREAS: Within normal limits. KIDNEYS: Symmetrical in size without any opaque renal calculi or hydronephrosis. No significant contour deform ing abnormality. ADRENAL GLANDS: Within normal limits. VASCULAR: There is no aortic aneurysm. BOWEL/MESENTERY: The stomach, small bowel, and colon demonstrate no acute abnormality. Mild sigmoid diverticulosis and scattered colonic diverticula without significant inflammatory change. Appendix is not directly visu alized. There is no free intraperitoneal air or fluid. ABDOMINAL WALL: Within normal limits. RETROPERITONEUM: There is no lymphadenopathy. BLADDER: No wall thickening or mass. REPRODUCTIVE: Within normal limits. INGUINAL: There is no lymphadenopathy or hernia. MUSCULOSKELETAL: Degenerative spondylosis of the lower lumbar spine with grade 1 anterolisthesis of L5 on S1 likely du e to facet arthrosis. CONCLUSION: 1. No radiopaque renal calculi or obstructive uropathy. 2. Colonic diverticulosis without evidence for diverticulitis. 3. Degenerative spondylosis of the lower lumbar spine with mild grade 1 anterolisthesis of L5 on S1 l ikely due to facet arthrosis. Lee Burgess MD on May 07, 2017 at 2:24 Board Certified Radiologist. This report was verified electronically.
[2017-05-07 04:08] LABS: BACTERIA, URINE RARE /hpf; BILIRUBIN, URINE NEG (NEG); BLOOD, URINE NEG (NEG); GLUCOSE,URINE NEG (NEG); HYALINE CAST, URINE 1 /lpf (RARE); KETONE, URINE NEG (NEG); MUCUS URINE FEW /lpf (OCC); NITRITE,URINE NEG (NEG); SQUAMOUS EPITHELIAL CELL URINE 1 /hpf (0-5); TRANSITIONAL EPI CELLS, URINE <1 /hpf; URINE COLOR YELLOW (YELLW/STRAW); URINE LEUKOCYTE ESTERASE LARGE (NEG)
[2017-05-07] MEDS ORDERED: MACR100C2 PO (04:34)
[2017-05-07] MEDS ORDERED: NITROFURANTOIN MONOHYD MACROCR 100 MG CAP PO ONE (04:45)
[2017-05-07 04:50] VITALS: BP 134/78; TEMP 98.1
== END 2017-05-07 04:51 | disposition home or self-care (01) ==
LOC: NEPC 23:09
DX: N39.0 Urinary tract infection, site not specified (principal); K57.30 Diverticulosis of large intestine without perforation or abscess without bleeding; E07.9 Disorder of thyroid, unspecified; E78.5 Hyperlipidemia, unspecified; E11.59 Type 2 diabetes mellitus with other circulatory complications; I25.10 Atherosclerotic heart disease of native coronary artery without angina pectoris; I10 Essential (primary) hypertension; I25.2 Old myocardial infarction; M32.9 Systemic lupus erythematosus, unspecified; M79.7 Fibromyalgia; K21.9 Gastro-esophageal reflux disease without esophagitis; Z79.02 Long term (current) use of antithrombotics/antiplatelets; Z79.4 Long term (current) use of insulin
CPT/HCPCS: 74176; 80048; 81001; 85025; 87086; 96374; 96375; 99284; J1885; J2405